=== PATIENT | female | born 1985 | race Caucasian/White ===

== ENCOUNTER 2017-01-04 21:00 | Inpatient (IN) | payer OTHER ==
--- NOTE | ~2017-01-04 | CO ---
Unit #: [id number] #: [id number] Patient: DEVENDRA MACKENZIE [id number] [place] [address] [id number] I MR#: [id number] NAME: DEVENDRA MACKENZIE ROOM: P203 Age: 31 Sex: F Admission Date: 01/05/2017 : 1985 Attending Physician: Carter Lawrence M.D. Primary Care Physician: Trey Hurt M.D. Consultation Date: 01/09/2017 CONSULTATION REPORT SUBJECTIVE Devendra is a 31-year-old who complained of a toothache. Ibuprofen has been ordered for her. She can follow up with dentist. Dictated by... Claudette Stephens P.A.-C. for Pro Gregg/ana m TD: 01/11/2017 05:51 JOB #: [id number] CONSULTATION REPORT Page 1 of 1 X Claudette Stephens CONSULTATION REPORT
--- NOTE | ~2017-01-04 | PN ---
Unit #: [id number] #: [id number] Patient: DEVENDRA VILLARREAL [id number] [facility] [address] [place] [address] [id number] MR#: [id number] NAME: DEVENDRA VILLARREAL ROOM: P203 Age: 31 Sex: F Admission Date: 01/05/2017 : 1985 Attending Physician: Carter Lawrence M.D. Admitting Physician: Carter Lawrence M.D. Primary Care Physician: Pro Acevedo PROGRESS NOTES DATE 01/06/2017 DISCUSSION Ms. Villarreal is a 31-year-old white female who was seen today and chart was reviewed and case was discussed with the staff. She has been anxious, withdrawn and rather seclusive to herself. Meanwhile, she has been cooperative with treatment recommendations as she has been taking the medications and tolerating them fairly well with no reported side effects. MENTAL STATUS EXAMINATION Young white female who was casually dressed with fair personal hygiene, appears to be in no acute distress or discomfort. She was awake and alert on interaction with intact orientation. Her mood was anxious with congruent affect. She denies any suicidal or homicidal ideations. Her insight and judgement remains slightly impaired. TREATMENT PLAN 1. We will continue her on her current medications and treatment protocol. We will monitor her response to the medications and make further adjustments as needed. 2. We will continue to follow up. Dictated by... Pro Hernadez/pedro TD: 01/08/2017 22:19 JOB #: [id number] Unit #: [id number] #: [id number] Patient: DEVENDRA VILLARREAL PROGRESS NOTES Page 1 of 1 X Carter Lawrence MD X PROGRESS NOTE
--- NOTE | ~2017-01-04 | DS ---
Unit #: [id number] #: [id number] Patient: DEVENDRA MACKENZIE [id number] [facility] [address] [place] [address] [id number] I MR#: [id number] NAME: DEVENDRA MACKENZIE ROOM: P203 Age: 31 Sex: F Admission Date: 01/05/2017 : 1985 Discharge Date: 01/10/2017 Attending Physician: Carter Lawrence M.D. Primary Care Physician: Trey Hurt M.D. DISCHARGE SUMMARY IDENTIFYING DATA Ms. Reyez is a 31-year-old single white female, who is a resident of [place], [place], and was transferred to us on a voluntary basis. DISCHARGE DIAGNOSES Psychiatric: Major depressive disorder, recurrent, moderate, without psychotic features; opioid dependence, moderate and acute withdrawals; methamphetamine dependence, moderate. Medical: None. Stressors: Moderate psychosocial stressors. HISTORY OF PRESENT ILLNESS Please see initial psychiatric evaluation for details. PAST PSYCHIATRIC HISTORY Please see initial psychiatric evaluation for details. PAST MEDICAL HISTORY Please see initial psychiatric evaluation for details. HOSPITAL COURSE The patient was [facility] and was oriented to the hospital environment. Routine p.r.n. medications were initiated, and she was started back on her home medications and detox protocol was initiated and she was closely monitored. She was taking the medications regularly and was tolerating them fairly well and was able to show a decent and therapeutic response and was able to come out of the detox without any complications and was willing to continue treatment on an outpatient basis and as such, it was decided she will be discharged home and will continue treatment on an outpatient basis. DISCHARGE MEDICATIONS None. DISCHARGE CONDITION Stable. PROGNOSIS Fair. Dictated by... Unit #: [id number] #: [id number] Patient: DEVENDRA MACKENZIE Carter Lawrence M.D. IAA/modl TD: 01/10/2017 07:10 JOB #: [id number] DISCHARGE SUMMARY Page 1 of 1 X Carter Lawrence MD X DISCHARGE SUMMARY
--- NOTE | ~2017-01-04 | PN ---
Unit #: [id number] #: [id number] Patient: DEVENDRA VILLARREAL [id number] [facility] [address] [place] [address] [id number] I MR#: [id number] NAME: DEVENDRA VILLARREAL ROOM: P203 Age: 31 Sex: F Admission Date: 01/05/2017 : 1985 Attending Physician: Carter Lawrence M.D. Admitting Physician: Carter Lawrence M.D. Primary Care Physician: Pro Acevedo PROGRESS NOTES DATE January 09, 2017 DISCUSSION Ms. Villarreal is a 31-year-old white female. who was seen today and chart was reviewed and the case was discussed with the staff. She has been anxious, withdrawn, but has not shown any agitation, irritability, or behavioral problems, and has been cooperative with the treatment recommendations and she has been taking the medications and tolerating them fairly well. MENTAL STATUS EXAMINATION Young white female, who was casually dressed with fair personal hygiene and appears to be in no acute distress or discomfort. She was awake and alert on interaction with intact orientation. Her mood is anxious with a congruent affect. Her speech is slow and goal-directed. She denies any suicidal or homicidal ideations. Her insight and judgment remain slightly impaired. TREATMENT PLAN 1. We will continue her on her current medications and treatment protocol, and will monitor her response to the medications, and make further adjustments as needed. 2. We will continue to followup. Dictated by... Pro Hernadez/ramos TD: 01/10/2017 13:10 JOB #: [id number] Unit #: [id number] #: [id number] Patient: DEVENDRA VILLARREAL PROGRESS NOTES Page 1 of 1 X Carter Lawrence MD X PROGRESS NOTE
--- NOTE | ~2017-01-04 | PN ---
Unit #: [id number] #: [id number] Patient: DEVENDRA MACKENZIE [id number] [facility] [address] [place] [address] [id number] I MR#: [id number] NAME: DEVENDRA MACKENZIE ROOM: P203 Age: 31 Sex: F Admission Date: 01/05/2017 : 1985 Attending Physician: Carter Lwarence M.D. Admitting Physician: Carter Lawrence M.D. Primary Care Physician: Pro Acevedo PROGRESS NOTES DATE OF SERVICE: 01/07/2017 SUBJECTIVE This is a 31-year-old white female, who was seen today and chart was reviewed and case was discussed with the staff. The patient has been anxious, withdrawn, and seclusive to herself and does appear to be in some distress or discomfort. She has been taking medications and tolerating them fairly well no reported side effects. MENTAL STATUS EXAMINATION Young white female, who was casually dressed with fair personal hygiene, appears to be in no acute distress or discomfort. She was awake and alert on interaction with intact orientation. Her mood was anxious with a congruent affect. She denies any suicidal or homicidal ideations. Denies any auditory or visual hallucinations. Her insight and judgment remain slightly impaired. TREATMENT PLAN 1. We will continue her on current treatment protocol. We will monitor her response and make further adjustments as needed. 2. We will continue to follow up. Dictated by... Pro Hernadez/ana m TD: 01/09/2017 07:09 JOB #: [id number] [facility] PROGRESS NOTES Page 1 of 1 X Carter Lawrence MD X PROGRESS NOTE
--- NOTE | ~2017-01-04 | PA ---
Unit #: [id number] #: [id number] Patient: DEVENDRA MACKENZIE [id number] [facility] [address] [place] [address] [id number] I MR#: [id number] NAME: DEVENDRA MACKENZIE ROOM: P203 Age: 31 Sex: F Admission Date: 01/05/2017 : 1985 Date of Assessment: 01/05/2017 Attending Physician: Carter Lawrence M.D. Admitting Physician: Carter Lawrence M.D. Primary Care Physician: Trey Hurt M.D. PSYCHIATRIC ASSESSMENT DATE OF SERVICE 01/05/2017. IDENTIFYING DATA Ms. Boucher is a 31-year-old single, white female, who is a resident of [place], [place], and is known to us from previous multiple encounters, and was self-referred to the hospital on voluntary basis. CHIEF COMPLAINT "I'm using drugs and I need to detox." HISTORY OF PRESENT ILLNESS Ms. Boucher is a 31-year-old, white female, who presented for opioid use disorder as well as amphetamine use and reports that she has been using 2 to 3 points of IV heroin a day and 3 to 4 point of ice 20 to 40 dollars worth, and reports that she has been using cannabis on daily basis and does report increasing depression, anxiety, irritability, restlessness, some multiple psychosocial stress, and significant consequences because of her addiction stating that she has been unemployed since 04/2016 related to her drug abuse and she has been living with her mother. Mother also uses heroin and cannabis and "it is hard to stay clean in this environment." She also reports disturbed sleep, psychomotor agitation, feelings of hopelessness and helplessness, grieving, stating "my girlfriend is overdosed tonight." She reports that she has been having conflict with her girlfriend over drug use and she just overdosing the heroin tonight and she went to the hospital. The patient reports multiple past suicide attempts including overdose on Tylenol and most recent overdose on Xanax in summer, and currently, she denies any suicidal ideations with intent or plan. SUBSTANCE ABUSE HISTORY The patient reports extensive history of substance abuse and dependence including alcohol, cannabis, opioids, and amphetamines, and currently, opioids and methamphetamine appears to be her drug of choice. PAST PSYCHIATRIC HISTORY The patient has had history of multiple inpatient psychiatric hospitalizations at [facility] and has done outpatient treatment program in the past, and currently, she is not active in any treatment program, and lately, she has been poorly compliant with any treatment recommendations outside of the hospital. Unit #: [id number] #: [id number] Patient: DEVENDRA MACKENZIE PAST MEDICAL HISTORY The patient's medical history is insignificant. ALLERGIES No known medication allergies. PERSONAL AND SOCIAL HISTORY A 31-year-old white female who reports that she lives at home with her mother and has been having some conflict in the relationship with her girlfriend, according to her, her girlfriend overdosed and went to the hospital last night. MENTAL STATUS EXAMINATION Young white female who was casually dressed with fair personal hygiene, appears to be in distress and discomfort. She was awake and alert on interaction with intact orientation to time, place, and person. Her mood was anxious and depressed with a congruent affect. Her speech was slow and goal directed. She denies any suicidal or homicidal ideations, and also denies any auditory or visual hallucinations. Her insight and judgment remain significantly impaired. DIAGNOSTIC IMPRESSION Psychiatric: Major depressive disorder, recurrent, moderate, without psychotic features; opioid dependence, moderate and acute withdrawals; methamphetamine dependence, moderate. Medical: None. Stressors: Moderate psychosocial stressors. TREATMENT PLAN 1. The patient has presented with history of substance abuse and mood disorder, and has been decompensating and will need inpatient hospitalization for detoxification, safety, and stabilization. We will start her back on her home medications and detox protocol will be initiated as well. 2. Supportive therapy was provided to the patient. 3. Safe, structured, and nourishing environment will be provided. ESTIMATED LENGTH OF STAY 4 to 5 days. ABILITY TO HELP SELF Self limited. WILLINGNESS TO HELP SELF The patient appears to be willing to help self. STRENGTHS 1. Communicative. 2. Cooperative. PROBLEMS 1. Chronic dysphoric symptoms. 2. Poor social support system. 3. Chronic chemical dependency. DISCHARGE CRITERIA This will be contingent upon the patient's ability to go through detox without having any significant withdrawal symptoms and her ability to stay Unit #: [id number] #: [id number] Patient: WITTMER,DEVENDRA CROW safe to herself, particularly after discharge from the hospital. Dictated by... Pro Hernadez/ana m TD: 01/05/2017 07:20 JOB #: [id number] PSYCHIATRIC ASSESSMENT Page 1 of 1 X Carter Lawrence MD X PSYCHIATRIC ASSESSMENT
--- NOTE | ~2017-01-04 | HP ---
Unit #: [id number] #: [id number] Patient: DEVENDRA MACKENZIE [id number] [place] [address] [id number] I MR#: [id number] NAME: DEVENDRA MACKENZIE ROOM: P203 Age: 31 Sex: F Admission Date: 01/05/2017 : 1985 Attending Physician: Carter Lawrence M.D. Admitting Physician: Carter Lawrence M.D. Primary Care Physician: Trey Hurt M.D. HISTORY AND PHYSICAL HISTORY OF PRESENT ILLNESS Devendra is a 31-year-old female admitted on 01/05/[address] [place] [address] for detox from heroin. PAST MEDICAL HISTORY None. PAST SURGICAL HISTORY 1. Tonsillectomy. 2. Cholecystectomy. ALLERGIES None. SOCIAL HISTORY Smokes 1 pack of cigarettes daily. No alcohol use. Does report occasional marijuana use. She is currently single and living with her mother. FAMILY HISTORY Noncontributory. REVIEW OF SYSTEMS CONSTITUTIONAL: No fever or chills. HEENT: Denies any sore throat, ear pain or runny nose. CARDIOVASCULAR: Denies chest pain, irregular heart rhythm or palpitations. CHEST: Denies shortness of breath or cough. No hemoptysis. GASTROINTESTINAL: Denies nausea, vomiting, diarrhea or chronic constipation. ENDOCRINE: Denies history of increased thirst or urination. No recent significant weight loss or gain. GENITOURINARY: Denies dysuria, frequency, or hematuria. SKIN: Denies any rashes. HEMATOLOGIC: Denies history of increased bleeding or bruising. MUSCULOSKELETAL: Denies any hot, swollen joints. No generalized muscle pain. NEUROLOGIC: Denies problems with vision or speech. No frequent, severe headaches. No numbness, tingling or weakness in any extremities. Denies loss of bladder or bowel control. CURRENT MEDICATIONS None. PHYSICAL EXAMINATION Unit #: [id number] #: [id number] Patient: DEVENDRA MACKENZIE GENERAL: Alert, oriented, in no acute distress. VITAL SIGNS: Blood pressure 117/76, heart rate 87, temperature 98.1. HEIGHT: 5 feet 6. WEIGHT: 142 pounds. SKIN: Warm and dry without rash or lesion. HEENT: Normocephalic. TMs not viewed. Oral and nasal passages clear. Conjunctivae clear. PERRLA. EOMs intact. NECK: Supple without lymphadenopathy or thyromegaly. HEART: Regular rate and rhythm without murmur. LUNGS: Clear. ABDOMEN: Soft, nontender, without masses or hepatosplenomegaly. : Not done. EXTREMITIES: No evidence of cyanosis, clubbing or edema. Moves all without focal deficit. NEUROLOGICAL: Grossly within normal limits. Cranial Nerves: II: Visual mcclellan are intact. III, IV AND : Extraocular movements are intact. Pupils are equal, round and reactive to light. V: Facial sensation is grossly normal. VII: Facial movements and expression are normal. VIII: Auditory acuity grossly intact. IX, X: Uvula is midline. Phonation is normal. XI: Patient shrugs shoulders and turns head normally. XII: Tongue protrudes in the midline. Sensory and Motor Function: Sensory and motor sensation is grossly normal. Motor: moves all extremities well. Coordination: Gait is normal. Deep Tendon Reflexes: Intact. IMPRESSION Psychiatric admission. RECOMMENDATIONS PSYCHIATRIC: Per psychiatrist. MEDICAL: No contraindications to participate in facility's activities. MEDICAL PROGNOSIS Good. MEDICAL CONDITION Stable. Dictated by... Dwayne Matute/turner TD: 01/05/2017 18:41 JOB #: [id number] Unit #: [id number] #: [id number] Patient: DEVENDRA MACKENZIE HISTORY AND PHYSICAL Page 1 of 1 X STAS CROSS APRN X HISTORY AND PHYSICAL
--- NOTE | ~2017-01-04 | PN ---
Unit #: [id number] #: [id number] Patient: DEVENDRA VILLARREAL [id number] [facility] [address] [place] [address] [id number] I MR#: [id number] NAME: DEVENDRA VILLARREAL ROOM: P203 Age: 31 Sex: F Admission Date: 01/05/2017 : 1985 Attending Physician: Carter Lawrence M.D. Admitting Physician: Carter Lawrence M.D. Primary Care Physician: Pro Acevedo PROGRESS NOTES DATE January 08, 2017 DISCUSSION Ms. Villarreal is a 31-year-old white female, who was seen today and chart was reviewed and the case was discussed with the staff. The patient has been anxious, withdrawn, and rather seclusive to herself. Meanwhile, she has been cooperative with the treatment recommendations and she has been taking the medications and tolerating them fairly well with no reported side effects. MENTAL STATUS EXAMINATION Young white female, who was casually dressed with fair personal hygiene and appears to be in no acute distress or discomfort. The patient was awake and alert on interaction with intact orientation. Her mood was anxious and depressed with a congruent affect. The patient denies any suicidal or homicidal ideations, and also denies any auditory or visual hallucinations. Her insight and judgment remain slightly impaired. TREATMENT PLAN 1. We will continue her on her current medications and treatment protocol, and will monitor her response to the medications, and make further adjustments as needed. 2. We will continue to followup. Dictated by... Pro Hrenadez/ramos TD: 01/10/2017 06:20 JOB #: [id number] Unit #: [id number] #: [id number] Patient: DEVENDRA VILLARREAL PROGRESS NOTES Page 1 of 1 X Carter Lawrence MD PROGRESS NOTE
[~2017-01-04 21:00] MED LIST: BACTRIM DS TABL1 TA1 PO; DARVOCET-N 1001 TAB PO; GABAPENTIN600 MG PO; ILOTYCIN1 G1 OS; KEFLEX500 M1 PO; KETOPROFEN PO; LORTAB 5/500 TA1 TA1 PO; MINIPRESS1 MG PO; NEURONTIN600 MG PO; NICOTINE TRANSD21 MG EXT; ORUDIS75 M1 PO; PERCOCET5/325 PO; TYLOX 5/500 CAP1 CAP PO; VISTARIL50 MG PO; ZITHROMAX PO
[2017-01-05 09:55] LABS: BASOPHIL# 0.1 X10e3 (0-0.3); BASOPHIL% 0.7 % (0-2.5); EOSINOPHIL# 0.2 X10e3 (0-0.7); EOSINOPHIL% 2.3 % (0.0-7.0); HEMATOCRIT 37.9 % (35.0-45.0); HEMOGLOBIN 12.6 gm/dL (12.0-16.0); LYMPHOCYTE# 3.1 X10e3 (1.0-3.5); LYMPHOCYTE% 35.6 % (17.0-45.0); MEAN CELL VOLUME 97.9 FL (83-96); MEAN CORPUSCULAR HEMOGLOBIN 32.5 PG (28-34); MEAN CORPUSCULAR HGB CONC 33.2 g/dL (30-36); MEAN PLATELET VOLUME 8.4 FL (6.5-11.5); MONOCYTE# 0.8 X10e3 (0-1.0); MONOCYTE% 9.3 % (3.0-12.0); NEUTROPHIL# 4.6 X10e3 (1.5-7.1); NEUTROPHIL% 52.1 % (40-75); PLATELET COUNT 320 X10e3 (140-420); RED BLOOD COUNT 3.87 X10e (3.90-5.30); RED CELL DISTRIBUTION WIDTH 13.5 % (11.0-15.5); WHITE BLOOD COUNT 8.8 X10e3 (4.0-10.5)
[2017-01-05 10:23] LABS: URINE APPEARANCE CLOUDY; URINE BLOOD NEG (NEG); URINE COLOR YELLOW; URINE GLUCOSE NORM (NORM); URINE KETONE NEG (NEG); URINE LEUKOCYTE ESTERASE NEG (NEG); URINE NITRATE NEG (NEG); URINE PROTEIN NEG (NEG); URINE UROBILINOGEN NORM (NORM)
[2017-01-05 10:26] LABS: URINE BILIRUBIN NEG (NEG)
[2017-01-05 10:32] LABS: ALBUMIN SERUM 3.7 g/dL (3.5-5.0); BILIRUBIN,TOTAL 0.6 mg/dL (0.2-2.0); BUN/CREATININE RATIO 16.66; CALCIUM SERUM 9.1 mg/dL (8.4-10.2); CREATININE SERUM 0.9 mg/dL (0.6-1.4); GLOM FILT RATE Estimated 85.9 mL/min (>60); POTASSIUM 4.3 mmol/L (3.5-5.1); PROTEIN TOTAL SERUM 6.8 g/dL (6.0-8.3)
[2017-01-05 10:35] LABS: DIFF IND NO
[2017-01-05 11:21] LABS: AMPHETAMINE POS (NEG); BARBITURATES NEG (NEG); BENZODIAZEPINES NEG (NEG); COCAINE NEG (NEG); MARIJUANA POS (NEG); OPIATES POS (NEG); TRICYCLIC ANTIDEPRESSANTS NEG (NEG); U METHADONE NEG (NEG)
== END 2017-01-10 09:30 | DRG 885 ==
LOC: P2S 01-05 01:41
PROVIDERS: Psychiatry & Neurology Psychiatry
PROC: HZ2ZZZZ Detoxification Services for Substance Abuse Treatment (ICD-10-PCS; principal; 2017-01-05)
DX: F33.1 Major depressive disorder, recurrent, moderate (principal); F15.20 Other stimulant dependence, uncomplicated; F11.23 Opioid dependence with withdrawal; Z91.5 Personal history of self-harm; Z90.49 Acquired absence of other specified parts of digestive tract
CPT/HCPCS: 80053; 80307; 81003; 84703; 85025; 86592

== ENCOUNTER 2017-01-14 01:45 | Emergency (ER) | payer OTHER ==
[2017-01-14] MEDS ORDERED: NO MEDICATIONS (01:53)
== END 2017-01-14 04:16 | disposition home or self-care (01) ==
LOC: SED 01:45
DX: F11.10 Opioid abuse, uncomplicated (principal); F17.200 Nicotine dependence, unspecified, uncomplicated; F41.9 Anxiety disorder, unspecified
CPT/HCPCS: 99283